=== PATIENT | male | born 1990 | race Caucasian/White ===

== ENCOUNTER 2020-02-15 01:45 | Emergency (ER) | payer OTHER ==
[~2020-02-15] VITALS: Ht 170.2 cm; Wt 71.7 kg
[2020-02-15 01:56] VITALS: BP 114/71
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
--- NOTE | 2020-02-15 02:02 | NUR ---
PT TAKEN TO CHAIR A
--- NOTE | 2020-02-15 02:09 | NUR ---
X-Ray at bedside.
[2020-02-15] MEDS ORDERED: IBUPROFEN 400 MG TAB PO ONE (02:25)
[2020-02-15 03:17] VITALS: BP 114/71
--- NOTE | 2020-02-17 09:35 | NUR ---
CALLED PT LEFT V-MAIL
--- NOTE | 2020-02-17 09:47 | NUR ---
PT CALLED BACK WILL COME INTO ER TODAY AFTER WORK.
== END 2020-02-15 02:54 | disposition home or self-care (01) ==
LOC: MED 01:45
DX: S60.221A Contusion of right hand, initial encounter (principal); W22.8XXA Striking against or struck by other objects, initial encounter; Y93.89 Activity, other specified; Y92.89 Other specified places as the place of occurrence of the external cause; Y99.8 Other external cause status
CPT/HCPCS: 73130; 90471; 90715; 99283; Q0092

== ENCOUNTER 2020-02-17 15:26 | Emergency (ER) | payer OTHER ==
[~2020-02-17] VITALS: Ht 170.2 cm; Wt 72.6 kg
[2020-02-17 15:35] VITALS: BP 121/73
[2020-02-17 16:15] VITALS: BP 121/73
== END 2020-02-17 16:15 | disposition home or self-care (01) ==
LOC: MED 15:26
DX: S62.304A Unspecified fracture of fourth metacarpal bone, right hand, initial encounter for closed fracture (principal); M79.641 Pain in right hand; V09.9XXA Pedestrian injured in unspecified transport accident, initial encounter; Y93.89 Activity, other specified; Y92.89 Other specified places as the place of occurrence of the external cause; Y99.8 Other external cause status
CPT/HCPCS: 99283

== ENCOUNTER 2022-05-14 00:08 | Emergency (ER) | payer OTHER ==
[~2022-05-14] VITALS: Ht 167.6 cm; Wt 69.9 kg
[2022-05-14 00:16] VITALS: BP 124/75
--- NOTE | 2022-05-14 00:20 | NUR ---
PT TAKEN TO BED 7
--- NOTE | 2022-05-14 00:25 | NUR ---
Dr. Durbin examining patient.
[2022-05-14] MEDS ORDERED: DICYCLOMINE HCL LIQUID 20 MG, ALUMINUM HYD/MAG/SIMETHICONE 30 ML, LIDOCAINE VISCOUS 2% ... PO ONE ×3 (00:30)
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
[2022-05-14] MEDS ORDERED: DICYCLOMINE HCL LIQUID 10 MG/5 ML UDC ONE (00:36)
[2022-05-14] MEDS ORDERED: ALUMINUM HYD/MAG/SIMETHICONE 30 ML UDC ONE (00:36)
[2022-05-14 00:44] LABS: BASOPHILS % (AUTO) 0.4 % (0.0-2.0); EOSINOPHILS # (AUTO) 0.3 K/uL (0-0.4); EOSINOPHILS % (AUTO) 3.4 % (0.0-4.0); HEMATOCRIT 42.4 % (36-52); HEMOGLOBIN 14.5 g/dL (12.0-18.0); LYMPHOCYTES # (AUTO) 3.2 K/uL (2.0-11.5); LYMPHOCYTES % (AUTO) 33.4 % (20.5-51.1); MEAN CORPUSCULAR HEMOGLOBIN 30 pg (27-31); MEAN CORPUSCULAR HGB CONC 34 g/dL (33-37); MEAN CORPUSCULAR VOLUME 88.3 fL (80-94); MONOCYTES # (AUTO) 0.6 K/uL (0.8-1.0); MONOCYTES % (AUTO) 6.8 % (1.7-9.3); NEUTROPHILS # (AUTO) 5.3 K/uL (1.8-7.7); PLATELET COUNT (AUTO) 203 K/uL (140-450); RED CELL DISTRIBUTION WIDTH 12.2 % (11.6-13.7); WHITE BLOOD COUNT (AUTO) 9.5 K/uL (4.8-10.8)
[2022-05-14 01:08] LABS: ALBUMIN 3.8 g/dL (3.4-5.0); ANION GAP 11.1 (8-16); ASPARTATE AMINOTRANSFERASE 18 U/L (15-37); CARBON DIOXIDE 30.6 mmol/L (21-32); CHLORIDE 103 mmol/L (98-107); CREATININE 1.2 mg/dL (0.6-1.3); GFR ARICAN-AMERICAN 90 mL/min (>90); GLUCOSE 105 mg/dL (74-106); POTASSIUM 3.7 mmol/L (3.5-5.1); SODIUM SERUM 141 mmol/L (136-145); TOTAL BILIRUBIN 0.2 mg/dL (0.0-1.0); UREA NITROGEN, BLOOD 18 mg/dL (7-18)
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
[2022-05-14] MEDS ORDERED: ONDA-188 PO (02:13)
[2022-05-14] MEDS ORDERED: FAMO-92 PO (02:13)
[2022-05-14] MEDS ORDERED: SIME125T38 PO (02:13)
[2022-05-14 02:25] VITALS: BP 121/65
--- NOTE | 2022-05-14 02:26 | NUR ---
Patient discharged with v/s stable. Written and verbal after care instructions given and explained. Patient alert, oriented and verbalized understanding of instructions. Ambulatory with steady gait. All questions addressed prior to discharge. ID band removed. Patient advised to follow up with PMD. Rx SENT TO PHARMACY. Patient educated on indication of medication including possible reaction and side effects. Opportunity to ask questions provided and answered.
== END 2022-05-14 02:26 | disposition home or self-care (01) ==
LOC: MED 00:08
DX: R07.89 Other chest pain (principal); R50.9 Fever, unspecified; R11.2 Nausea with vomiting, unspecified; Z79.899 Other long term (current) drug therapy
CPT/HCPCS: 36415; 71045; 80053; 84484; 85025; 85379; 99284; Q0092

== ENCOUNTER 2022-08-18 20:05 | Emergency (ER) | payer OTHER ==
[~2022-08-18] VITALS: Ht 167.6 cm; Wt 70.8 kg
[~2022-08-18 20:05] MED LIST: FAMO-92 PO; ONDA-188 PO; SIME125T38 PO
[2022-08-18 20:31] VITALS: BP 123/84
--- NOTE | 2022-08-18 20:34 | NUR ---
TO LOBBY A/W BED AMBULATORY
[2022-08-18] MEDS ORDERED: ACET-5629 PO ×2 (21:51→21:53)
--- NOTE | 2022-08-18 22:12 | NUR ---
ULNAR GUTTER APPLIED TO L FOREARM. NAVID WRAP X 1. + CMS
--- NOTE | 2022-08-18 22:23 | NUR ---
Patient discharged with v/s stable. Written and verbal after care instructions given and explained. Patient alert, oriented and verbalized understanding of instructions. Ambulatory with steady gait. All questions addressed prior to discharge. ID band removed. Patient advised to follow up with PMD. Rx of PERCOCET given. Patient educated on indication of medication including possible reaction and side effects. Opportunity to ask questions provided and answered.
== END 2022-08-18 22:23 | disposition home or self-care (01) ==
LOC: MED 20:05
DX: S62.305A Unspecified fracture of fourth metacarpal bone, left hand, initial encounter for closed fracture (principal); W22.8XXA Striking against or struck by other objects, initial encounter; Y93.89 Activity, other specified; Y92.89 Other specified places as the place of occurrence of the external cause; Y99.8 Other external cause status
CPT/HCPCS: 73130; 99283

== ENCOUNTER 2023-07-07 19:06 | Emergency (ER) | payer OTHER ==
[~2023-07-07] VITALS: Ht 157.5 cm; Wt 72.6 kg
[~2023-07-07 19:06] MED LIST changes: +ACET-5629 PO
[2023-07-07 19:17] VITALS: BP 120/74; PULSE 74; RESP 18; TEMP 98; O2SAT 98
== END 2023-07-07 20:17 | disposition left against medical advice (07) ==
LOC: MED 19:06
DX: R06.02 Shortness of breath (principal); Z53.21 Procedure and treatment not carried out due to patient leaving prior to being seen by health care provider
CPT/HCPCS: 99281